=== PATIENT | female | born 1990 | race Caucasian/White ===

== ENCOUNTER 2023-07-06 21:01 | Observation (INO) | payer BC, SELFPAY ==
[2023-07-06 15:16] VITALS: BP 137/96
[2023-07-06 15:43] LABS: HCG, Serum Qualitative Screen Negative
[2023-07-06 15:46] LABS: ALT (SGPT) 23 U/L (0-35); AST (SGOT) 25 U/L (14-36); Albumin 4.7 g/dl (3.5-5.0); Alkaline Phosphatase 109 U/L (38-126); Blood Urea Nitrogen 8 mg/dl (7-17); Calcium 9.6 mg/dl (8.4-10.2); Carbon Dioxide 26 mmol/L (22-30); Chloride 103 mmol/L (98-107); Glucose 93 mg/dl (70-99); Lipase 66 U/L (23-300); Potassium 3.6 mmol/L (3.5-5.1); Sodium 140 mmol/L (135-145); Total Bilirubin 0.5 mg/dl (0.2-1.3); Total Protein 7.6 g/dl (6.3-8.2); eGFR > 60.00
[2023-07-06 15:57] LABS: % Basophils 0.5 % (0-2); % Eosinophils 3.5 % (0-6); % Immature Granulocytes 0.2 % (0-0.5); % Lymphocytes 14.6 % (20.5-51.1); % Monocytes 7.7 % (1.7-9.3); % Neutrophils 73.5 % (42.2-75.2); Absolute Eosinophils 0.2 10^3/uL (0-0.7); Absolute Lymphocytes 0.9 10^3/uL (1.2-3.4); Absolute Monocytes 0.5 10^3/uL (0.1-0.6); Absolute Neutrophils 4.7 10^3/uL (1.4-6.5); Hematocrit 38.2 % (37.0-47.0); Hemoglobin 13.3 g/dL (12.0-16.0); Mean Corp Hgb Conc. 34.8 g/dL (33.0-37.0); Mean Corpuscular Hgb 27.3 pg (27.0-31.0); Mean Corpuscular Volume 78.4 fL (81.0-99.0); Mean Platelet Volume 9.3 fL (7.4-10.4); Nucleated Red Blood Cells % 0 %; Platelet Count 259 10^3/uL (130-400); Red Blood Cell Count 4.87 10^6/uL (4.20-5.40); Red Cell Dist. Width 14.4 % (11.5-14.5); White Blood Cell Count 6.4 10^3/uL (4.8-10.8)
[2023-07-06 18:20] VITALS: BMI 50.3
[2023-07-06 18:29] VITALS: BP 125/79
--- NOTE | 2023-07-06 18:38 | ED.GENMED ---
History of Present Illness
General
Chief Complaint: Abdominal Symptoms
Source: patient
Exam Limitations: none
Time Seen by Provider: 07/06/23 17:54
Travel History
Have you had any contact with someone who has COVID-19?: No
Do you have any symptoms of coronavirus? Fever > 100 degrees, chills, cough, shortness of breath, sore throat, loss of taste or smell, muscle aches, or headache?: No
History of Present Illness
History of Present Illness:
This is a 33 year old female that comes in with c/o abd pain and vomiting. State that she has not been able to eat or drink for the pat 3 weeks. States that she went to [facility] on and she was discharged. State that today she got into
see the GI specialist for an emergency appointment and she was told to come to the ER. States that she has abd pain, nausea and vomiting, State that she has a headache and that her stool is yellow. States that she has lost 30 pounds in 3 weeks.
State that the GI specialist was planning on doing testing tomorrow. Denies any fever, chills, chest pain, SOB, diarrhea, dizziness, urinary burning.
Past History
Past History
ED Past Medical History: Psychiatric (Bipolar)
ED Past Surgical History: (X 3) and Urological (bladder cyst removed)
Social History
Tobacco: Former smoker
Alcohol: None
Drug: None
Personal:
Living: with family
Family History
Family History: Unable to obtain
Review of Systems
Review of Systems
All Other Systems: ROS reviewed and negative except as documented in HPI and ROS
Constitutional: Reports no symptoms; Denies fever or chills
EENT: Reports no symptoms
Respiratory: Reports no symptoms; Denies cough or trouble breathing
Cardiac: Reports no symptoms; Denies chest pain
ABD/GI: Reports abdominal pain, nausea and vomiting; Denies diarrhea
: Reports no symptoms; Denies dysuria or urgency
Musculoskeletal: Reports no symptoms
Skin: Reports no symptoms
Neurological: Reports headache; Denies dizzy
Psychiatric: Reports no symptoms
Phy Exam
General Physical Exam
General Presentation: no apparent distress
General age: appears stated age
General Skin: warm and dry
General Habitus: obese
General Mental: alert
General Hydration: appears well hydrated
ENT Exam
ENT Exam: TM's normal, pharynx normal and neck supple
Eye Exam
Eye Exam: EOMI
Cardiovascular Exam
Cardiovascular Exam: regular rate/rhythm, no edema and normal peripheral pulses
Pulmonary Exam
Pulmonary Exam: lungs clear, no respiratory distress, no rales, chest non tender, no crackles, no rhonchi, no wheezing and no cough
Gastrointestinal Exam
Gastrointestinal Exam: soft, no organomegaly, no pulsatile mass, non distended, tender (Mid abd tenderness with palpation) and other (Obese, Hypoactive bowel sounds)
Musculoskeletal Exam
Musculoskeletal Exam: full ROM and no edema
Skin Exam
Skin Exam: normal color, warm/dry, no rash and no petechia
Psychiatric Exam
Psychiatric Exam: normal mood/affect
Course
Orders/Labs/Results
Orders:
Orders
07/06/23 15:17
Test Result ONCE
07/06/23 15:20
Complete Blood Count/With Diff Urgent
Comprehensive Metabolic Panel Urgent
HCG, Serum Qualitative Screen Urgent
Lipase Urgent
07/06/23 18:37
CT Abd/pelvis W Iv Cont Urgent
Comment:
Reason For Exam: Mid abd pain,
0.9% Sodium Chloride 1000 ml [Nss] 1,000 ml IV BOLUS
Abnormal Lab Results
07/06/23
15:20
MCV 78.4 L fL
(81.0-99.0)
Absolute Lymphs (auto) 0.9 L 10^3/uL
(1.2-3.4)
Lymphocytes % 14.6 L %
(20.5-51.1)
07/06/23 15:20
07/06/23 15:20
Labs unremarkable HCG negative.
Vital Signs
Initial and Last Documented VS:
Initial Vital Signs
Temp Pulse Resp BP Pulse Ox
98.7 F 106 17 137/96 99
07/06/23 15:16 07/06/23 15:16 07/06/23 15:16 07/06/23 15:16 07/06/23 15:16
Last Documented Vital Signs
Temp Pulse Resp BP Pulse Ox
98.7 F 106 17 125/79 95
07/06/23 15:16 07/06/23 15:16 07/06/23 15:16 07/06/23 18:29 07/06/23 18:30
MDM/Problems Addressed
Differential Diagnosis Includes:
Gastritis, Duodenal ulcers
MDM/Problems Addressed:
This is a 33 year old female that comes in with c/o not beeing able to eat or drink as she has vomiting and abd pain. Patient saw the GI specialist today and was sent in for admission for further testing tomorrow.
will check labs and get CT scan.
Back into see patient. Explained that her CT is negative for any acute process. Will admit patient for further testing by GI tomorrow.
Chronic conditions affecting care:
NA
Acute Exacerbation and/or Progression of Chronic Illness:
NA
*Radiology
Radiology exam reviewed: radiology read reviewed (CT-Hepatosplenomegaly again noted. Unremarkable appendix. No intestinal obstruction, free air or findings to suggest obstructive uropathy bilaterally. )
*Pulse Oximetry
Patient hypoxic: no
*EKG
Interpreted by ED Provider?: NA
Rate: EKG- N/A
*Assistant Education Director Interpretation
Rate: Assistant Education Director- N/A
*Critical Care Note
Total Time (30-74mins, 75-104mins- exclusive of procedures): Not Applicable
ED Attending Note
-
Portions of this chart may have been created with voice recognition software.� Occasional wrong word or��sound alike� substitutions may have occurred due to the inherent limitations of voice recognition software.
Discharge Plan
Departure
Patient Disposition: Admit
Date of Disposition: 07/06/23
Time of Disposition: 19:34
Admit to: Med/Surg
Presentation/result/management discussed w/ accepting MD/DO: Hospitalist
Patient with high blood pressure during this ER visit?: No
Condition: Good
Discharge Problem:
Abdominal pain, Nausea and vomiting
Prescriptions:
No Action
Vitamin Tablet
1 tab PO DAILY
acetaminophen-codeine 1 TABLET tablet
2 tab PO Q4HPRN PRN (Reason: MODERATE PAIN) 0RF
ibuprofen 600 MG tablet
600 mg PO Q4HPRN PRN (Reason: cramps) 0RF
Referrals:
Garriosn Oneill MD [Family Provider] -
Interventions
Interventions:
*General Assessment Last Done: 07/06/23 18:20
*Neglect/Abuse Screening Last Done: 07/06/23 18:20
ED- Fall Risk Assessment Last Done: 07/06/23 18:20
*ED COVID-19 Vaccine History Last Done: 07/06/23 18:20
FM-Dqoceh-Wfnpyypimh Assessment Last Done: 07/06/23 18:20
Discharge Date and Time
Print Language: UKRAINIAN
[2023-07-06] MEDS: NSS 1000 IV ×2 (18:47→23:39)
--- NOTE | 2023-07-06 19:54 | HPS.HSE ---
Addendum entered and electronically signed by Galen Bunn MD 07/07/23 01:06:
Laboratory Tests
07/06/23
20:57
U Benzodiazepines Scrn Positive on clonazepam
U Marijuana (THC) Screen Positive H
Original Note:
Family Physician
-
Family Physician: Garrison Oneill
Chief Complaint
-
sent in from GI office for evaluation fo emesis and wt loss
History of Present Illness
33F HX Bipolar disorder sent from GI office for evaluation of vomiting
Intermittent vomiting
- started since Mar
- black color emesis at time
- associated with abdominal pain
- report unable to eat and drink for last 3 weeks
- associated wt loss 30 lbs
- no diarrhea, yellow stool
- seen at [facility] on elio MACDONALDd
- seen at GI office today
Per father at bed side
- patient has 2 special need children at home
- smoke and vapd weed daily till 1 week ago
- patient seen Dr Haynes psychiatrradha
Medical History
Past Medical History
Past Medical History: Reports Psychiatric (bipolar disorder )
Past Surgical History: Reports Other
Additional Past Surgical History:
(X 3) and Urological (bladder cyst removed)
Social History
Tobacco: Former Smoker
Alcohol: None
Drug: Marijuana (smoke and vape weed daily till 1 week ago)
Personal:
Living: With Family
Family History
Family History: Not pertinent
Allergies / Home Medications
Allergies reflects when Allergies were last updated in [employer].
Home Medications with original date entered in [employer]
Allergy/Medication List:
Allergies
Allergy/AdvReac Type Severity Reaction Status Date / Time
latex Allergy Rash Verified 07/06/23 15:15
lorazepam [From Ativan] Allergy Pharmacy Verified 07/06/23 15:15
to Review
Home Medications
clonazepam 1 mg tablet 2 mg PO BID 07/06/23
lamotrigine 150 mg tablet 300 mg PO DAILY 07/06/23
ondansetron HCl 4 mg tablet 4 mg PO [id number] PRN nausea/vomiting 07/06/23
pantoprazole 20 mg tablet,delayed release 20 mg PO DAILY 07/06/23
sertraline 100 mg tablet 250 mg PO DAILY 07/06/23
Review of Systems
-
Constitutional: Reports No Symptoms
EENT: Reports No Symptoms
Respiratory: Reports No Symptoms
Cardiac: Reports No Symptoms
Abdomen/GI: Reports See HPI
: Reports No Symptoms
Musculoskeletal: Reports No Symptoms
Skin: Reports No Symptoms
Neurological: Reports No Symptoms
Endocrine: Reports No Symptoms
Hematologic/Lymphatic: Reports No Symptoms
Psych: Reports No Symptoms
Physical Exam
Vital Signs
Vital Signs
Temp Pulse Resp BP Pulse Ox
98.7 F 106 17 125/79 95
07/06/23 15:16 07/06/23 15:16 07/06/23 15:16 07/06/23 18:29 07/06/23 18:30
Physical Exam
General: Well Developed, Well Nourished and Other (morbid obesity )
HEENT: NormoCephalic and Moist mucous membranes
Respiratory: Clear; No Wheezes, Rales or Rhonchi
Cardiac: S1/S2 and Regular Rhythm
GI: Soft, Non Tender and Non Distended
Skin: Warm and Dry
Neuro: AO x 3
Psych: Calm
Laboratory Results
-
07/06/23 15:20
07/06/23 15:20
Laboratory Results
Total Bilirubin 0.5 mg/dl (0.2-1.3) 07/06/23 15:20
AST 25 U/L (14-36) 07/06/23 15:20
ALT 23 U/L (0-35) 07/06/23 15:20
Alkaline Phosphatase 109 U/L (38-126) 07/06/23 15:20
Lipase 66 U/L (23-300) 07/06/23 15:20
Data Reviewed
-
CT Scan: Report Reviewed by me
Lab Data: Labs Reviewed by me
Impression/Plan
-
Reviewed VS: afebrile ST 100s BP 125/80 RR 17 POx 95
Data
Unremarkable CBC
Unremarkable CMP
CT Abd/pelvis W Iv Cont
Hepatosplenomegaly again noted.
Unremarkable appendix.
No intestinal obstruction, free air or findings to suggest obstructive uropathy bilaterally.
ASSESSMENT & PLAN
Subacute intermittent emesis of unclear origin DDX: Hyperemesis carcinoids syndrome
- Reported wt loss
- unremarkable Labs, CT AP except hepatomegaly
- UDS to be thorough
- CLINICAL FELLOW PO PPI
- GI consulted for further evaluation
HX BPD: stable per patient
Per father at bed side
- patient has 2 special need children at home
- smoke and vape weed daily till 1 week ago
- patient seen Dr Haynes psychiatrist
- cont CLINICAL FELLOW Clonazepam. lamotrigine and sertraline
Class III morbid Obesity
DVT Px: LMWH
Code: Full code
Obs MS
[2023-07-06 21:16] LABS: Amphetamines Negative (Negative); Barbiturates Negative (Negative); Benzodiazepines Positive (Negative); Buprenorphine Negative (Negative); Cocaine Negative (Negative); Marijuana Positive (Negative); Methadone Negative (Negative); Methamphetamines Negative (Negative); Opiates Negative (Negative); Phencyclidine Negative (Negative); Tricyclic Antidepressants Negative (Negative)
[2023-07-06 21:38] LABS: Fentanyl, Urine Negative (Negative)
[2023-07-06 23:00] VITALS: BP 144/89
[2023-07-06] MEDS: KLONOPIN 2 MG PO (23:30)
[2023-07-06] MEDS: ZOFRAN 4 MG IV (23:47)
[2023-07-07] VITALS (12 sets, daily range): BP systolic 87–165; BP diastolic 63–106; BMI 50.3
[2023-07-07 06:36] LABS: Hematocrit 36.1 % (37.0-47.0); Mean Corp Hgb Conc. 33.2 g/dL (33.0-37.0); Mean Corpuscular Hgb 27.1 pg (27.0-31.0); Mean Corpuscular Volume 81.7 fL (81.0-99.0); Mean Platelet Volume 9.2 fL (7.4-10.4); Platelet Count 198 10^3/uL (130-400); Red Blood Cell Count 4.42 10^6/uL (4.20-5.40); Red Cell Dist. Width 14.4 % (11.5-14.5); White Blood Cell Count 4.5 10^3/uL (4.8-10.8)
[2023-07-07] MEDS: ZOFRAN 4 MG IV (06:55)
[2023-07-07 07:00] LABS: Blood Urea Nitrogen 7 mg/dl (7-17); Calcium 8.9 mg/dl (8.4-10.2); Carbon Dioxide 26 mmol/L (22-30); Chloride 104 mmol/L (98-107); Estimated Creatinine Clearance > 125 ml/min; Glucose 85 mg/dl (70-99); Potassium 3.8 mmol/L (3.5-5.1); Sodium 138 mmol/L (135-145); eGFR > 60.00
--- NOTE | 2023-07-07 07:47 | W.PN.HOSP.TC ---
Addendum entered and electronically signed by Katherine Smith MD 07/07/23 16:50:
total DC time 45 min
Original Note:
Today's Communication/Plan
-
see A/P
Assessment / Plan
Assessment / Plan
HPI: 33 yo F PMH Bipolar disorder who was sent in from GI office for vomiting. Her intermittent vomiting started since Mar, associated with abdominal pain.
She reported unable to eat and drink for last 3 weeks with 30 lbs weight loss. She was seen at [facility] on and was DC'ed.
Per father at bed side, patient has 2 special need children at home. 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 Patient has seen Dr Haynes psychiatrist
CT AP unrevealing: Hepatosplenomegaly again noted. Unremarkable appendix. No intestinal obstruction, free air or findings to suggest obstructive uropathy bilaterally.
A/P:
# Subacute intermittent emesis ongoing since Mar 2023, may be related to Cannabinoid hyperemesis syndrome
# Weight loss
UDS positive for Benzo and marijuana
can start trial of lidocaine cream for cannabinoid hyperemesis syndrome
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
GI consulted for further evaluation, plan for endoscopy today
# h/o bipolar mood disorder
cont HIGH PRESSURE KETTLE OPERATOR Clonazepam, lamotrigine and sertraline
# morbidly obesity, BMP 50
DVT Px: LMWH
Code: Full code
Obs MS
DW RN
DW GI
Anticipated Discharge: Within 24 hours
Subjective/Interval History
-
Date of Service: July 07, 2023
Objective Data
-
Labs:
Laboratory Results
07/07/23
06:14
WBC 4.5 L
Hgb 12.0
Hct 36.1 L
Plt Count 198 D
Sodium 138
Potassium 3.8
Chloride 104
Carbon Dioxide 26
BUN 7
Creatinine 0.6
Glucose 85
Calcium 8.9
Vital Signs:
Vital Signs
Temp Pulse Resp BP Pulse Ox
37.1 C 106 17 153/106 96
07/06/23 15:16 07/06/23 15:16 07/06/23 15:16 07/07/23 03:00 07/06/23 23:33
Review of Systems
-
Constitutional: Reports Weight Loss
Abdomen/GI: Reports Abdominal Pain
Physical Exam
-
General: Well Developed, Well Nourished, No Apparent Distress, Comfortable and Conversant; Negative Respiratory Distress
HEENT: Normocephalic, Atraumatic, Nose Appears Normal and Ears Appear Normal; Negative Oxygen
Respiratory: Clear to Auscultation and Non Labored Respirations; Negative Accessory Resp Muscle Use
Cardiac: Regular Rhythm and S1/S2
GI: Soft
Skin: Warm and Dry
Neuro: Awake, Alert and Nonfocal/Grossly Intact
Psych: Calm
Data Reviewed
-
Labs: Labs Reviewed by me
[2023-07-07] MEDS: ZOLOFT 250 MG PO (08:31)
--- NOTE | 2023-07-07 08:31 | CON.GI ---
Addendum entered and electronically signed by Usha Garcia MD 07/07/23 13:57:
I saw and examined the patient.
The EXECUTIVE ADMIN's note was reviewed and I agree with the note.
Comment: This is a 33-year-old female who has a history of anxiety and bipolar disorder had been using medical marijuana but she says she had not used it for about a week who has been having symptoms of refractory nausea vomiting initially started
in March but recently has been worsening she saw Dr. Blevins in the office yesterday and given her refractory symptoms was sent to the emergency room and she did have a CAT scan in the ER and blood work that was unremarkable and has been
receiving IV fluids. Patient very tearful on exam and does complain of epigastric pain and denies recent use of NSAIDs except for occasional use of Advil she also denies prior history of migraines or cyclic vomiting. She had been in the emergency
room at [facility] over the also with similar symptoms and was given Protonix and Zofran. She had not been taking Protonix consistently prior to admission she has been under a lot of stress and she does have 2 children with
disability who need full-time care at home. Her last endoscopy was in [address] Alfaro as below which showed esophagitis and biopsies with Eosinophils greater than 20 from the distal esophagus, gastritis negative for H. pylori and also
biopsies were negative for celiac
Assessment and plan Refractory recurrent n/v with epigastric pain symptoms are most likely related to possible cannabinoid hyperemesis versus cyclic vomiting syndrome versus GERD and also exacerbated by stress and anxiety. Doubt peptic ulcer
disease may also need to rule out gastroparesis. Will schedule upper endoscopy. In the past her distal esophageal biopsies showed eosinophils greater than 20 most likely GERD related and less likely EOE but will repeat biopsies. Continue
supportive care with IV fluids,, PPI bid and Zofran as needed. If endoscopy is unremarkable will DC home on Protonix twice daily and Zofran as needed and follow-up with Dr. Blevins. Continue to abstain from marijuana use she has not used it for
the past 1 week. May need gastric emptying study as outpatient if symptoms persist. She has mild hepatosplenomegaly noted on CT unclear if she had prior mono could be related to fatty liver doubt cirrhosis her LFTs are normal will schedule for
FibroScan as outpatient
07/07/23 Ct abd/pelvis
IMPRESSION:
Hepatosplenomegaly again noted.
Unremarkable appendix.
No intestinal obstruction, free air or findings to suggest obstructive uropathy bilaterally.
Original Note:
Consultation
-
Date/Time Consultation Requested: 07/06/231929
Date/Time Consultation Performed: 07/07/23829
Requesting Provider: TARA Panda
Performing Provider: TARA Corona, Usha Garcia MD
Reason for Consultation: nausea/vomiting wt loss
Medical History
Chief Complaint / HPI
Chief Complaint: black emesis, abdominal pain, vomiting wt loss
History of Present Illness:
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 Pt states she started with symptoms several months ago but put her children with
disability as priority. She admits to daily Marijuana use but started 3 weeks ago with worsening symptoms. She stopped Marijuana about 1 week ago with concern for hyperemesis but she was also concerned for vomiting dark material periodically over
several months. She takes rare NSAIDs and denies any other recent abx, med changes or supplement use. She was seen at [facility] weekend and was treated with Protonix and Zofran without improvement. She presented to GI
office yesterday and was sent to ER as concern of inability to keep food down. She denies hx vomiting episode in past but per record wasa seen in 2017 with vomiting and hyperemesis with . She had EGD at that time with normal esophagus,
distal esophagus with moderate esophagitis with prominent IEL>20 HPF with localized inflammation with congestion, erythema in antrum neg H pylori and celiac.
She admits to some lower abdominal pain and non blood looser stools. She also admits to periods of feeling 'hot' with onset of vomiting. She otherwise denies dysphagia, odynophagia, GERD but some increase belching with PPI use, or
constipation. She admits to stress and anxiety but feels symptoms are not stress related. She does follow with MD for bipolar and anxiety for last 10 years with compliance with follow up. Denies any use of wt loss therapy medications.
Past Medical History
Past Medical History: Psychiatric (anxiety, bipolar, urethral diverticulum, L1-3 disc bulge,) and Other (marijuana use )
Past Surgical History:
Social History
Tobacco: Former Smoker
Alcohol: None
Drug: Marijuana
Personal:
Living: With Family
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
Family History
Family History: Other (mother and grandmother with polyps)
Allergies / Home Medications
Allergy/AdvReac Type Severity Reaction Status Date / Time
latex Allergy Rash Verified 07/06/23 15:15
lorazepam [From Ativan] Allergy Pharmacy Verified 07/06/23 15:15
to Review
�Medication �Instructions �Recorded
clonazepam 1 mg tablet 2 mg PO BID 07/06/23
lamotrigine 150 mg tablet 300 mg PO DAILY 07/06/23
ondansetron HCl 4 mg tablet 4 mg PO [id number] PRN nausea/vomiting 07/06/23
pantoprazole 20 mg tablet,delayed 20 mg PO DAILY 07/06/23
release
sertraline 100 mg tablet 250 mg PO DAILY 07/06/23
Review of Systems
-
History Source: Patient
Constitutional: Reports Weight Loss (30 lbs wt loss) and Other (feeling Hot )
Cardiac: Reports No Symptoms
Abdomen/GI: Reports Abdominal Pain, Nausea, Vomiting, Diarrhea and Other (dark emesis )
: Reports Other (hx chronic urinary issues )
Musculoskeletal: Reports No Symptoms
Skin: Reports No Symptoms
Neurological: Reports Weakness and Other (anxiety )
Endocrine: Reports No Symptoms
Hematologic/Lymphatic: Reports No Symptoms
Vital Signs
Temp Pulse Resp BP Pulse Ox
98.7 F 106 17 153/106 96
07/06/23 15:16 07/06/23 15:16 07/06/23 15:16 07/07/23 03:00 07/06/23 23:33
Physical Exam
Exam
General: Well Developed, Well Nourished and Other (anxious with current nausea and no diagnosis )
HEENT: Normocephalic and Anicteric
Respiratory: Clear
Cardiac: Other (tachy)
GI: Soft, Non Distended and Tender (diffuse worse lower abdomen )
Musculoskeletal: No Clubbing and No Cyanosis
Skin: Warm and Dry
Neuro: Awake, Alert and AO x 3
Psych: Other (cooperative but tearful and anxious about symptoms )
Results
WBC 4.5 10^3/uL (4.8-10.8) L 07/07/23 06:14
Hgb 12.0 g/dL (12.0-16.0) 07/07/23 06:14
Hct 36.1 % (37.0-47.0) L 07/07/23 06:14
MCV 81.7 fL (81.0-99.0) 07/07/23 06:14
Plt Count 198 10^3/uL (130-400) D 07/07/23 06:14
Absolute Neuts (auto) 4.7 10^3/uL (1.4-6.5) 07/06/23 15:20
Sodium 138 mmol/L (135-145) 07/07/23 06:14
Potassium 3.8 mmol/L (3.5-5.1) 07/07/23 06:14
Chloride 104 mmol/L (98-107) 07/07/23 06:14
Carbon Dioxide 26 mmol/L (22-30) 07/07/23 06:14
BUN 7 mg/dl (7-17) 07/07/23 06:14
Creatinine 0.6 mg/dL (0.6-1.0) 07/07/23 06:14
Calcium 8.9 mg/dl (8.4-10.2) 07/07/23 06:14
Total Bilirubin 0.5 mg/dl (0.2-1.3) 07/06/23 15:20
AST 25 U/L (14-36) 07/06/23 15:20
ALT 23 U/L (0-35) 07/06/23 15:20
Alkaline Phosphatase 109 U/L (38-126) 07/06/23 15:20
Lipase 66 U/L (23-300) 07/06/23 15:20
Diagnostic Image Results:
Prior GI Procedures:
EGD: [facility] with normal esophagus, distal esophagus with moderate esophagitis with prominent IEL>20 HPF with localized inflammation with congestion, erythema in antrum neg H pylori and celiac.
Colonoscopy: none
Assessment / Plan
-
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 Pt states she started with symptoms several months ago but put her children with
disability as priority. She admits to daily Marijuana use but started 3 weeks ago with worsening symptoms. She stopped Marijuana about 1 week ago with concern for hyperemesis but she was also concerned for vomiting dark material periodically over
several months. She takes rare NSAIDs and denies any other recent abx, med changes or supplement use. She was seen at [facility] weekend and was treated with Protonix and Zofran without improvement. She presented to GI
office yesterday and was sent to ER as concern of inability to keep food down. She denies hx vomiting episode in past but per record wasa seen in 2017 with vomiting and hyperemesis with . She had EGD at that time with normal esophagus,
distal esophagus with moderate esophagitis with prominent IEL>20 HPF with localized inflammation with congestion, erythema in antrum neg H pylori and celiac.
-nausea/vomiting
-wt loss
-dark emesis
-marijuana use
-hx EGD 2016 with distal esophageal bx with >20 eosinophils
-bipolar
-hx urinary issue uretheral diverticulum
PLAN:
etiology of symptoms related to PUD though denies NSAID use, Cannibis hyperemesis disorder, anxiety vs other
plan for EGD today
cont PPI
Zofran PRN
discussed Marijuana abstience and may take time off use if that is primary culprit
discussed anxiety adding to issues pt did not feel was primary problems but discussed follow up with MD for continued management
consider discharge after EGD pending finding
-
-
Thank you for consultation and allowing me to participate in the patient's care. Please call the irrigation foreman GI physician during the after hours with any questions or concerns.
[2023-07-07] MEDS: LAMICTAL 300 MG PO (08:32)
[2023-07-07] MEDS: KLONOPIN 2 MG PO (08:32)
[2023-07-07] MEDS: PROTONIX 20 MG PO (08:32)
[2023-07-07] MEDS: LMX 4 1 APPLIC TOPICAL (08:34)
[2023-07-07] MEDS: TYLENOL 650 MG PO (14:28)
--- NOTE | 2023-07-07 16:35 | W.DCSUMMARY ---
Discharge Summary
Discharge Data
Date of Admission: 07/06/23
Date of Discharge: 07/07/23
-
Pending Results: No
Hospital Course
Principal Diagnosis:
Subacute intermittent diffuse abdominal pain/emesis ongoing since Mar 2023, may be related to Cannabis hyperemesis syndrome
Chronic Diagnoses:�
Bipolar mood disorder on Clonazepam, lamotrigine and sertraline
Morbid obesity, BMP 50
Consultations:�
Gastroenterology
Procedures:�
Upper endoscopy 07/07/23
Clinical course:�
This is a 33-year-old female with past medical history as stated above, who was sent in from the GI office for vomiting and diffuse abdominal pain.
Apparently her symptoms started since March 2023.
She was seen at [facility] on and was discharged.
She admits to high stress level at home, with 2 special need children at home.
Problem 1:
Subacute intermittent emesis ongoing since Mar 2023, may be related to Cannabinoid hyperemesis syndrome.
This was associated with weight loss per patient.
Her UDS was noted positive for benzo and marijuana.
Her CT abdomen pelvis was unrevealing: hepatosplenomegaly again noted. Unremarkable appendix. No intestinal obstruction, free air or findings to suggest obstructive uropathy bilaterally.
She underwent upper endoscopy by GI which was also unrevealing, biopsy was taken which she can follow up outpatient.
She has been informed to follow-up with her PCP for her weight loss.
She can also continue to follow-up with her psychiatrist for mood control.
As for the rest of her medical problems, they were stable during her hospital stay.
Discharge Plan
-
Patient Disposition: Home (Routine Discharge)
Discharge Diagnosis/Procedures: Subacute intermittent abdominal pain may be related to Cannabis hyperemesis syndrome
Condition: Good
Diet: As tolerated, Low Fat and Low Cholesterol
Activity: As tolerated
Driving Restrictions: As prior to admission
Activity Restrictions/Additional Instructions:
Follow-up with your PCP for weight loss evaluation
Referrals:
Garrison Oneill MD [Family Provider] - in less than 1 week
Prescriptions:
Continued
lamotrigine 150 mg tablet
300 mg PO DAILY
ondansetron HCl 4 mg tablet
4 mg PO [id number] PRN (Reason: nausea/vomiting)
sertraline 100 mg tablet
250 mg PO DAILY
clonazepam 1 mg tablet
2 mg PO BID
Patient Comments:
07/06/2023: last filled 06/10/23, 120 tabs for 30 days from [facility][id number]
pantoprazole 20 mg tablet,delayed release (DR/EC)
20 mg PO DAILY
Discharge Orders:
Discharge Patient (As Directed); Ordered 07/07/23
Ordered By: Katherine Smith
Discharge Date and Time
Print Language: WELSH
--- NOTE | 2023-07-07 18:40 | PTCARENOTE ---
Pt ordered dinner here after EGD. Pt tolerated the food without a problem. Discharge then completed.
== END 2023-07-07 19:06 | disposition home or self-care (01) ==
LOC: 4 WEST ACU 21:01
PROVIDERS: Student in an Organized Health Care Education/Training Program; ADMITTING PHYSICIAN Internal Medicine; ATTENDING PHYSICIAN Internal Medicine; CONSULT PHYSICIAN Internal Medicine Gastroenterology; EMERGENCY PHYSICIAN Emergency Medicine; FAMILY PHYSICIAN Family Medicine
DX: R11.10 Vomiting, unspecified (principal); R10.13 Epigastric pain; F31.9 Bipolar disorder, unspecified; R63.4 Abnormal weight loss; E66.01 Morbid (severe) obesity due to excess calories; F12.90 Cannabis use, unspecified, uncomplicated; R16.2 Hepatomegaly with splenomegaly, not elsewhere classified; M51.26 Other intervertebral disc displacement, lumbar region; K20.0 Eosinophilic esophagitis; K29.50 Unspecified chronic gastritis without bleeding; Z68.43 Body mass index [BMI] 50.0-59.9, adult; Z79.899 Other long term (current) drug therapy; Z87.891 Personal history of nicotine dependence
CPT/HCPCS: 43239; 88305; 74177; 80048; 80053; 80306; 80307; 83690; 84703; 85025; 85027; 88342; 96360; 99285; G0378; Q9967